=== PATIENT | male | born 1945 | race Caucasian/White ===

== ENCOUNTER → 2017-04-09 | Day surgery (SDC) | payer OTHER ==
[~2017-04-09] VITALS: Ht 180.3 cm; Wt 81.7 kg
[~2017-04-09] MED LIST: 0.9% Sodium Chloride 1,000 ML IV PRN; CHOL400T PO; CYAN500 PO; FERR-63 PO; METH500T PO; OMEP20TA86 PO; RANI300C PO; SAW80CAP2 PO; SILD100T PO; SIMV40TA5 PO; Sodium Chloride LOK Flush 10 mL Syringe IV PRN; fentaNYL-PF 50 mCg/mL 2 mL Inj IVPUSH PRN
[2017-04-09 08:45] VITALS: BP 131/96; PULSE 68; RESP 12
[2017-04-09 09:19] VITALS: BP 119/82; PULSE 72; RESP 14; O2SAT 93
[2017-04-09 09:29] VITALS: BP 143/93; PULSE 73; O2SAT 95
[2017-04-09 09:36] VITALS: BP 155/89; PULSE 70; O2SAT 95
--- NOTE | 2017-04-09 10:21 | ENDO ---
[address] [address] ENDOSCOPY PROCEDURE PATIENT: JAKUB CLEMENS : 1945 MR#: [id number] ADMIT: 04/09/2017 JOB ID: [id number] DATE: 04/09/2017 PROCEDURE: Esophagogastroduodenoscopy. INDICATION: The patient with a history of Francisco esophagus. The patient's ASA classification is 2. Mallampati score is 2. MEDICATIONS: 1. Versed 4 mg. 2. Fentanyl 100 mcg. INSTRUMENT USED: GIF H 180 J. PROCEDURE DETAILS: After informed consent was obtained, the patient was brought into the GI suite, where he was placed on oxygen via nasal cannula and monitored with continuous pulse oximeter, telemetry and blood pressure monitoring. A time-out was performed. Then, he was placed in the left lateral decubitus position and medications were administered for sedation. A bite block was placed. The standard EGD scope was inserted through the bite block and advanced under direct visualization to the second portion of duodenum without difficulty. FINDINGS: 1. Normal appearing duodenal bulb, first and second portion. 2. Normal appearing pylorus. The pylorus was widely patent. 3. The mucosa in the antrum and body of the stomach appeared to be atrophic. Multiple random biopsies were obtained. 4. Retroflexed views in the gastric body revealed a normal-appearing cardia and fundus. 5. The GE junction was at approximately 41 cm. There were several short tongues of salmon-colored mucosa arising to 40 cm. Multiple random biopsies were obtained. The remainder of the esophagus appeared otherwise unremarkable. IMPRESSION: Atrophic gastric mucosa, C0 M1 Francisco esophagus. RECOMMENDATIONS: 1. Continue PPI. 2. Reflux precautions. 3. Await biopsy results. 4. Followup in GI clinic in 2-4 weeks. COMPLICATIONS: None. ESTIMATED BLOOD LOSS: Less than 5 mL.
--- NOTE | 2017-04-14 09:26 | PATH ---
SURGICAL PATHOLOGY Attending Physician:Sivan Loya CASE STATUS: Signed Out PATIENT NAME: JAKUB CLEMENS PID: [id number] : 1945 DATE COLLECTED:04/09/2017 18:50 SPECIMEN: 1: Gastric, Biopsy 2: Esophagus, Biopsy CLINICAL HISTORY: PATIENT HISTORY OF PHAM'S 1). GASTRIC BIOPSY 2). DISTAL ESOPHAGUS BIOPSY FINAL DIAGNOSIS: 1. Gastric Biopsy: Superficial portions of gastric antral-type mucosa with chronic gastritis. Negative for H. pylori organisms by H&E stain and immunohistochemistry studies. Intestinal metaplasia is present. Negative for dysplasia and malignancy. 2. Distal Esophagus, Biopsy: Inflamed, fragmented portions of squamocolumnar junctional mucosa with focal involvement by intestinal metaplasia/Pham's metaplasia. Negative for dysplasia and malignancy. ICD10: K22.7 GROSS DESCRIPTION: The specimen is received in two formalin filled containers labeled with the patient's name. 1). The specimen is labeled "gastric" and consists of 2 portions of tissue which aggregate to 0.3 x 0.2 x 0.2 CM. The specimen is entirely submitted in cassette 1A. 2). The specimen is labeled "distal esophagus" and consists of 3 portions of tissue which aggregate to 0.2 x 0.2 x 0.2 CM. The specimen is entirely submitted in 2A. 04/09/2017DC MICRO DESCRIPTION: 1. An immunohistochemical stain was performed to evaluate for Helicobacter organisms and is negative. A control stain showed appropriate reactivity. This test was developed and its performance characteristics determined by [facility]. It has not been cleared or approved by the [place]. Food and Drug Administration. The FDA has determined that such clearance or approval is not necessary. This test is used for clinical purposes. It should not be regarded as investigational or for research. ICD-9 CODES: CPT CODES: 1: 19365, 06233 2: 28586 Electronically Signed Out Hanny Valdivia MD [facility] Pathology [facility] [address], [place] [address] Technical component performed at [facility], [address], [address]
== END | disposition home or self-care (01) ==
LOC: END 00:39
PROVIDERS: ATTEND Internal Medicine Gastroenterology
DX: K22.70 Barrett's esophagus without dysplasia (principal); K29.50 Unspecified chronic gastritis without bleeding; K21.9 Gastro-esophageal reflux disease without esophagitis; E78.5 Hyperlipidemia, unspecified; D64.9 Anemia, unspecified
CPT/HCPCS: 43239; G0500; J2250; J3010; J7030